=== PATIENT | female | born 1990 | race Hispanic/Latino ===

== ENCOUNTER 2018-12-01 16:02 | Emergency (ER) | payer OTHER ==
[~2018-12-01] VITALS: Ht 162.6 cm; Wt 99.8 kg
[~2018-12-01 16:02] MED LIST: LOESTRIN FE 1.1 EACH PO; NORCO 10-325 T1 EACH PO; NORCO 5-325 TA1 EACH PO; PROMETHAZINE HC25 M1 PO
[2018-12-01] MEDS ORDERED: NORCO 5-325 TA1 EACH PO (19:28)
== END 2018-12-01 19:54 | disposition home or self-care (01) ==
LOC: ED 16:02
DX: K63.89 Other specified diseases of intestine (principal); Z90.49 Acquired absence of other specified parts of digestive tract
CPT/HCPCS: 74177; 80053; 81001; 83690; 84703; 85025; 96374; 96375; 99284-25; J1885; J2405; Q9967